=== PATIENT | male | born 1995 | race African-American/Black ===

== ENCOUNTER 2016-08-02 11:59 | Emergency (ER) | payer SELFPAY ==
[~2016-08-02] VITALS: Ht 175.3 cm; Wt 65.8 kg
[2016-08-02 12:05] VITALS: BP 133/79; PULSE 97; RESP 20; TEMP 99.4; O2SAT 96
[2016-08-02 14:08] VITALS: BP 125/70; PULSE 88; RESP 20; TEMP 98.9; O2SAT 98
== END 2016-08-02 14:08 | disposition home or self-care (01) ==
LOC: SED 11:59
DX: J20.9 Acute bronchitis, unspecified (principal)
CPT/HCPCS: 71010; 99283